=== PATIENT | male | born 1990 | race Caucasian/White ===

== ENCOUNTER 2019-10-03 13:15 | Emergency (ER) | payer MEDICARE, MEDICAID ==
[~2019-10-03] VITALS: Ht 177.8 cm; Wt 100.0 kg
[2019-10-03 13:52] VITALS: BP 134/93
== END 2019-10-03 17:37 | disposition left against medical advice (07) ==
LOC: ER 13:15
DX: F41.9 Anxiety disorder, unspecified (principal); Z53.21 Procedure and treatment not carried out due to patient leaving prior to being seen by health care provider